=== PATIENT | female | born 1940 | race Caucasian/White ===

== ENCOUNTER 2017-08-16 08:21 | Inpatient (IN) | payer OTHER, MEDICARE ==
[~2017-08-16] VITALS: Ht 160 cm; Wt 52.6 kg
--- NOTE | ~2017-08-16 | EKG ---
[place] [address] [address] 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 : 1940 Requested By: Dary Valentin Order Number: [id number] MD: Douglas Mariscal Measurements Intervals Oracle Rate: 87 P: 58 KS: 145 QRS: 41 QRSD: 75 T: 53 QT: 378 QTc: 455 Interpretive Statements Sinus rhythm Nonspecific ST segment abnormality Baseline wander in lead(s) V1 Compared to ECG 08/18/2017 08:59:51 Atrial fibrillation no longer present Ventricular premature complex(es) no longer present Electronically Signed On 08-20-2017 8:29:12 CATTLE KNOCKER by Douglas Mariscal [email or web address] <ELECTRONICALLY SIGNED> By: Douglas Mariscal MD, [facility] 08/20/17 0829 1152 1152 Douglas Mariscal MD, [facility] /EPI
--- NOTE | ~2017-08-16 | S ---
[facility] [place] [place] [address] SURGICAL PATH RPT PROCEDURE Name: GIOVANNA OROURKE Room #: 357-P ADM IN M.R.#: [id number] Admission: 08/16/17 Date of : 38 Discharge: Report #: [id number] Path Case #: [id number] PATHOLOGY REPORT COLLECTION DATE: 08/16/2017 RECEIVED DATE: 08/16/2017 SUBMITTING PHYS: Dr. Jessika Solares OTHER PHYS: Dr. Kiko Ang SPECIMEN(S) RECEIVED: A.Portion of ileostomy B.Skin * * * * * * * * * * * * FINAL DIAGNOSIS: A. Segment of small intestine and skin "portion of ileostomy, segmental resection": - Recent mucosal hemorrhage with focal ulceration and granulation tissue and reactive changes. - There is no evidence of malignancy. B. "Skin", biopsy: - Seborrheic keratosis. - There is no evidence of atypia or malignancy. (SHA:mml; 08/20/2017) PATHOLOGIST: Hang Mercer M.D. REPORT ELECTRONICALLY SIGNED BY: Hang Mercer M.D. DATE/TIME: 08/20/2017 13:33 * * * * * * * * * * * * GROSS PATHOLOGY: A. Received in formalin labeled Giovanna Orourke, portion of ileostomy" and consists of a closed segment of small intestine measuring 4.8 cm in length by a 2.5 cm in diameter. One end is closed with garth. The opposite end shows a stoma measuring 1.4 cm in diameter. The mucosal aspect of some is granular and brown. There is a rim of skin surrounding the stoma that measures 0.3 cm in width. Sectioning reveals no mucosal lesions. [place] sections are submitted as A1. B. Received in formalin labeled "Giovanna Orourke, skin" and consists of 2 segments of gupta skin measuring 3.5 x 0.7 x 0.3 cm and 3.4 x 0.9 x 0.4 cm. No epidermal lesions are identified. [place] sections of each are submitted as E1. (TESS; 08/19/2017) [facility] [place] [address] SURGICAL PATH RPT PROCEDURE Name: GIOVANNA OROURKE Room #: 357-P ADM IN M.R.#: [id number] Admission: 08/16/17 Date of : 38 Discharge: Report #: [id number] Path Case #: [id number] CLINICAL HISTORY: Perforated small bowel INITIAL CPT CODE(S): A; 48430 B; 39753 Professional services performed by [facility] at [facility] [address] [place] [address] Technical services performed by [facility] at [address] [place] [address], [facility] [address] [address]. [facility] [address] [address] PHONE: [phone] DIRECTOR: Gregorio Sheldon M.D. * * * END OF REPORT * * *
--- NOTE | ~2017-08-16 | P ---
[facility] [place] [address] PROCEDURE REPORT Name: GIOVANNA SALES Room #: 357-P [facility] IN M.R.#: [id number] Admission: 08/16/17 Attend Phys: Kiko Swenson MD Discharge: Date of : 39 Report #: [id number] THIS REPORT FOR: //name// CC: Kiko Ang MD BRIEF HISTORY: The patient is a 76-year-old woman with Crohn's disease who has had lower abdominal pain. Recent evaluation with CT and labs was nondiagnostic. She presents today for diagnostic ileoscopy and outpatient ileoscopy and sigmoidoscopy. PREOPERATIVE DIAGNOSIS: Crohn's disease status post abdominal colectomy. POSTOPERATIVE DIAGNOSIS: History of Crohn's disease, possible perforation at the ileal stoma. MEDICATIONS: Deep sedation with propofol per anesthesia. SPECIMEN: None. ESTIMATED BLOOD LOSS: 3 mL. PROCEDURE: Ileoscopy. FINDINGS: Prior to propofol sedation, procedure of ileoscopy was discussed with the patient as well as potential risks, benefits, and complications. She indicates she understands and desires to proceed. With the patient in supine position, digital examination was completed of the ileal stoma and no abnormalities were noted. Subsequently, the KAICOREi video colonoscope was introduced without difficulty or resistance. Immediately upon introductions, red blood was seen. The scope was withdrawn back and there appeared to be disruption of the mucosa. I could see the lumen of the ileum and the scope did advance easily into that area. However, since the mucosa was disrupted. This may represent a mucosal tear or possibly a perforation at the ileal stoma site. Due to that concern, the scope was withdrawn and the procedure terminated. DISPOSITION: She has mucosal disruption and whether this represents a complete perforation is not entirely clear. We will not do flexible sigmoidoscopy at [facility] [address] [place] [address] PROCEDURE REPORT Name: GIOVANNA SALES Room #: 357-P [facility] IN .R.#: [id number] Admission: 08/16/17 Attend Phys: Kiko Swenson MD Discharge: Date of : 39 Report #: [id number] this time and have the patient go for a CT to evaluate for the possibility of a perforation. <ELECTRONICALLY SIGNED> By: Kiko Swenson MD 08/18/17 1339 1013 1521 Kiko Swenson MD /nt
--- NOTE | ~2017-08-16 | 2DMMODE ---
[facility] [address] [place] [address] 2 D/M-MODE ECHOCARDIOGRAM Name: GIOVANNA SALES Room #: 357-P ADM IN M.R.#: [id number] Admission: 08/16/17 Attend Phys: Megan Metzger Discharge: Date of : 38 Date of Service: 08/20/17 1311 Report #: [id number] THIS REPORT FOR: //name// APPROVED REPORT Study performed: 08/20/2017 11:17:40 EXAM: Comprehensive 2D, Doppler, and color-flow Echocardiogram Patient Location: Bedside Room #: 357 Status: routine BSA: 1.52 HR: 82 bpm BP: 114/39 mmHg Other Information Study Quality: Adequate Indications Pulmonary Hypertension Hypertension/HDD 2D Dimensions RVDd: 32.40 mm LVEF(%): 64.71 (>50%) IVSd: 7.74 (7-11mm) LVOT Diam: 18.68 (18-24mm) LVDd: 36.24 mm PWd: 7.38 (7-11mm) Ascending Ao: 28.64 (22-36mm) LVDs: 23.69 (25-40mm) Aortic Root: 27.15 mm IVC: 12.00 mm Mae's LVEF: 64.71 % Volumes Left Atrial Volume (Systole) Single Plane 4CH: 44.31 mL Single Plane 2CH: 42.70 mL LA ESV Index: 32.00 mL/m2 Aortic Valve AoV Peak Willard.: 1.26 m/s AO Peak Gr.: 6.31 mmHg LVOT Max P.64 mmHg LVOT Max V: 1.08 m/s NORMAN Vmax: 2.35 cm2 Mitral Valve E/A Ratio: 1.1 MV Decel. Time: 313.57 ms [facility] [place] [address] 2 D/M-MODE ECHOCARDIOGRAM Name: MÓNICAGIOVANNA VEENA Room #: 357-P ADM IN M.R.#: [id number] Admission: 08/16/17 Attend Phys: Megan Metzger Discharge: Date of : 38 Date of Service: 08/20/17 1311 Report #: [id number] MV E Max Willard.: 1.28 m/s MV A Willard.: 1.20 m/s MV PHT: 90.94 ms IVRT: 59.98 ms Pulmonary Valve PV Peak Willard.: 1.07 m/s PV Peak Gr.: 4.57 mmHg Pulmonary Vein P Vein S: 0.47 m/s P Vein A: 0.22 m/s P Vein D: 0.30 m/s P Vein A Dur.: 106.1 msec P Vein S/D Ratio: 1.57 Tricuspid Valve TR Peak Willard.: 2.89 m/s TR Peak Gr.: 33.33 mmHg PA Pressure: 38.00 mmHg Left Ventricle The left ventricle is normal size. There is normal left ventricular wall thickness. The left ventricular systolic function is normal. The left ventricular ejection fraction is within the normal range. LVEF is 60-65%. Grade II - pseudonormal filling dynamics. Right Ventricle The right ventricle is normal size. The right ventricular systolic function is normal. Atria The left atrium size is normal. The right atrium size is normal. Aortic Valve The aortic valve is normal in structure. No aortic regurgitation is present. There is no aortic valvular stenosis. Mitral Valve The mitral valve is normal in structure. There is no mitral valve regurgitation noted. No evidence of mitral valve stenosis. Tricuspid Valve The tricuspid valve is normal in structure. There is trace tricuspid regurgitation. Estimated PAP 38 mmHg. There is mild pulmonary hypertension. Pulmonic Valve [facility] [address] [place] [address] 2 D/M-MODE ECHOCARDIOGRAM Name: GIOVANNA SALES Room #: 357-P ADM IN M.R.#: [id number] Admission: 08/16/17 Attend Phys: Megan Metzger Discharge: Date of : 38 Date of Service: 08/20/17 1311 Report #: [id number] The pulmonary valve is normal in structure. Trace pulmonic regurgitation. Great Vessels The aortic root is normal in size. IVC is normal in size and collapses >50% with inspiration. Pericardium There is no pericardial effusion. <Conclusion> The left ventricle is normal size. The left ventricular systolic function is normal. Grade II - pseudonormal filling dynamics. The right ventricle is normal size. The left atrium size is normal. There is no aortic valvular stenosis. The mitral valve is normal in structure. There is no pericardial effusion. <ELECTRONICALLY SIGNED> By: Josse Tom MD 08/20/17 131 10 10 Josse Tom MD /INF
--- NOTE | ~2017-08-16 | HC ---
[facility] [place] [address] CONSULTATION Name: GIOVANNA SALES Room #: 357-P ADM IN M.R.#: [id number] Admission: 08/16/17 Attend Phys: Kiko Swenson MD Discharge: Date of : 39 Report #: [id number] THIS REPORT FOR: //name// CC: Kiya Ang DATE OF SERVICE: 08/21/2017 HISTORY OF PRESENT ILLNESS: The patient is a 76-year-old white female with history of Crohn's disease, past history of a colectomy and ileostomy, who was admitted with a perforated distal ileum with early abdominal sepsis. She underwent exploratory laparotomy with segmental bowel resection with ileostomy revision on 08/16/2017. Postoperatively, she has been treated for basilar infiltrates with healthcare-associated pneumonia, renal insufficiency, DVT of left lower extremity. She has a history of chronic kidney disease. She is noted to have acute on chronic renal insufficiency. She has medical complexity with debilitation. She is still on nasal prong O2, which is new for her with her pulmonary infiltrates. Pulmonary medicine is involved as well. We are seeing her now in rehabilitation medicine consultation. PAST MEDICAL HISTORY: Includes hypertension, Crohn's disease, hysterectomy, chronic kidney disease, superficial blood clots right leg, DVT left leg, started on Coumadin led to bleeding in the colon. IVC filter was placed. She had prior colon surgery with ileostomy placement in 2009. History of osteoporosis and B12 deficiency. HABITS: No history of tobacco or alcohol abuse. FAMILY HISTORY: Significant for vascular disease. Mother had a CVA. SOCIAL HISTORY: Lives in house with spouse, 2 steps in. Did not utilize gait aids. Not on O2. can assist. REVIEW OF SYSTEMS: Did not offer any current complaints of chest pain or abdominal discomfort. Notes shortness of breath with increased activity. No focal extremity pain complaints at this time. Notes that her mouth is dry and she is just starting to try to eat. PHYSICAL EXAMINATION: GENERAL: Pleasant 76-year-old white female in no obvious distress. Alert and pleasant. She is on 3 liters nasal cannula. VITAL SIGNS: Last recorded temperature is 100.2, pulse 87, respirations 18, blood pressure 104/56. HEENT: Appeared benign. EXTREMITIES: Functional range of motion of both upper extremities. Strength is [facility] [address] [id number] CONSULTATION Name: GIOVANNA SALES Room #: [address] [place] [address] IN M.R.#: [id number] Admission: 08/16/17 Attend Phys: Kiko Swenson MD Discharge: Date of : 39 Report #: [id number] grade 4-/5. DTRs are trace to 1. Lower extremities, no focal calf swelling. Trace distal lower extremity edema. Strength is grade 4-/5. DTRs are trace to 1. She is standby assistance with sit to stand. Gait was 14 feet min assist with a front-wheeled walker. ASSESSMENT: A 76-year-old white female with the following problem list: 1. Medical complexity with generalized debilitation. 2. Pulmonary rehabilitation. 3. Distal ileal perforation, now status post exploratory laparotomy with segmental bowel resection and ileostomy reversal on 08/16/2017. 4. History of Crohn's disease with past colectomy and ileostomy. 5. Acute renal insufficiency superimposed on chronic kidney disease. 6. Pulmonary infiltrates. 7. Hypertension. 8. Prior history of a deep venous thrombosis of left lower extremity. PLAN: I would anticipate that the patient should be a good acute in-hospital inpatient rehabilitation candidate as she further medically stabilizes. We will be glad to follow along with you regarding her rehab therapy needs. By: 1249 2200 Ty Cisneros MD /SAPNA
--- NOTE | ~2017-08-16 | HC ---
[facility] [place] [address] CONSULTATION Name: GIOVANNA SALES Room #: 357-P ADM IN M.R.#: [id number] Admission: 08/16/17 Attend Phys: Kiko Swenson MD Discharge: Date of : 39 Report #: [id number] THIS REPORT FOR: //name// CC: Kiko Ang DATE OF SERVICE: 08/16/2017 REASON FOR CONSULTATION: Elevated creatinine. HISTORY OF PRESENT ILLNESS: This is a 76-year-old female who has a long history of inflammatory bowel disease/Crohn's disease. This was originally present in 2003. She had a colectomy in 2009. She has an ileostomy in place and continues to function from that. She had a long course of Asacol and Remicade. She tends to have very high ostomy outputs and hence runs a creatinine level in the 1.6-1.8 range. I have seen her in the office for evaluation of that. She has no history of urinary tract infections, nephrolithiasis, hematuria, or proteinuria. She also was on some nonsteroidals in the form of ibuprofen. She had somewhat dense kidneys on ultrasound at that time. Kidneys on a CT scan yesterday showed a somewhat short of appearance. As an outpatient, it was my impression that she had a chronic tubular interstitial nephritis as the cause of her CKD. I last saw her in the office on 12/16/2016 and her creatinine level at that point was 1.66. She is on no renal active medications. I have recommended that she keep her fluid intake high chronically because of her high ostomy outputs. Yesterday, she came in for a scope. She suffered a perforation during that scope. She was taken to the operating room where she had a segmental small bowel resection and ileostomy revision as well as a washout of the abdomen. She did well with that. She has been placed on the surgical floor. At this point, she is already taking some liquids by mouth. She states she is thirsty. She has also been on some IV fluids. She has not been hypotensive. In fact, she has had fairly good blood pressures. Listed intake is 1.2 liters and output of 650 mL overnight. PAST MEDICAL HISTORY: Crohn's disease as noted above. She has had previous GI bleed and total colectomy with ileostomy in 2009. Her Crohn's has actually been fairly quiescent since her colectomy. She had a previous DVT, has IVC filter in place. She also has some hyperlipidemia. She has had a previous hysterectomy as well as a colectomy and a left leg venous procedure. MEDICATIONS: Prior to admission include lovastatin 40 mg daily, calcium with vitamin D, vitamin B12 shots twice monthly and Prolia 60 mg injection every [address] [address] CONSULTATION Name: GIOVANNA SALES Room #: 357-P [facility] IN M.R.#: [id number] Admission: 08/16/17 Attend Phys: Kiko Swenson MD Discharge: Date of : 39 Report #: [id number] FAMILY HISTORY: Father at 50 years old of head trauma. Mother at age 79 of CVA. She has a one sister alive with hypertension in her 70s. No known renal disease in the family. SOCIAL HISTORY: The patient is , lives in [place], [place]. 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 REVIEW OF SYSTEMS: She has tried to remain very active and in fact is very busy on a daily basis. She has been doing some water aerobics. She denies dyspnea, cough, chest pain or palpitations. She does have abdominal discomfort since surgery yesterday. She denies nausea, vomiting. She is trying to take in some liquids. No difficulty voiding urine, although she has had a urinary catheter placed. No peripheral edema. PHYSICAL EXAMINATION: GENERAL: A very pleasant 76-year-old female. VITAL SIGNS: Blood pressure 126/55, heart rate 103, temperature 98.1. HEENT: Shows somewhat dry oral mucosa, no lesions. Pupils are equal and reactive. Sclerae nonicteric. NECK: Veins are not distended. Neck is supple. CHEST: Clear bilaterally. HEART: Has a regular rate and rhythm. ABDOMEN: Actually has a few bowel sounds present. She is very tender postop. EXTREMITIES: Show no peripheral edema. LABORATORY DATA: From this morning, sodium 139, potassium 4.6, chloride 108, bicarbonate 21, BUN 27, creatinine 2.2, glucose 169, calcium 8.0, magnesium 1.5, AST 31, ALT 19, total protein 6.3, albumin 2.9. White count 8.5, hemoglobin 12.2, hematocrit 36.6, platelets 160,000. ASSESSMENT: 1. One day post procedure related perforation in the small intestine. She has had surgery to correct that and is now doing remarkably well. Blood pressure is holding well. Hemodynamics are okay. She has gotten IV fluids. Urine output is up. She is already taking fluids orally, so hopefully she will continue recovering. 2. Chronic kidney disease stage III with acute worsening. She has somewhat small kidneys at baseline. We have had her off of nonsteroidals. She has tried to keep fluid intake up. Her acute rise was with a creatinine up to 2.2. She is making good urine now and is on IV fluids. I expect this should correct fairly readily. 3. Crohn's disease. History as noted above. PLAN: 1. We will continue on her current IV fluids, normal saline. 2. Oral intake is able. [facility] [address] [place] [address] CONSULTATION Name: GIOVANNA SALES Room #: 357-P ADM IN M.R.#: [id number] Admission: 08/16/17 Attend Phys: Kiko Swenson MD Discharge: Date of : 38 Report #: [id number] 3. Monitor intake and output. 4. Repeat labs in the morning. 5. We will follow along the care of this pleasant patient, both here in the hospital and continued as an outpatient. <ELECTRONICALLY SIGNED> By: Augusto Agarwal MD 08/19/17 0805 1221 194 Augusto Agarwal MD /nt
--- NOTE | ~2017-08-16 | O ---
[facility] [place] [address] OPERATIVE REPORT Name: GIOVANNA SALES Room #: 357-P ADM IN M.R.#: [id number] Admission: 08/16/17 Attend Phys: Kiko Swenson MD Discharge: Date of : 39 Report #: [id number] THIS REPORT FOR: //name// CC: Kiko Ang DATE OF SERVICE: 08/16/2017 PREOPERATIVE DIAGNOSIS: Perforated distal ileum with early abdominal sepsis. POSTOPERATIVE DIAGNOSES: 1. Perforated distal ileum with early abdominal sepsis. 2. Dense and significant intra-abdominal adhesions. 3. Numerous incisional ventral hernias. PROCEDURES PERFORMED: 1. Exploratory laparotomy with washout. 2. Extensive lysis of adhesions. 3. Segmental small bowel resection. 4. Ileostomy revision. 5. Suture repair of numerous incisional ventral hernias. SURGEON: Jessika Solares MD TIMBER SPOTTER: JENNIFER Cisneros. ANESTHESIA: General endotracheal anesthesia. ESTIMATED BLOOD LOSS: Minimal (less than 10 mL). COMPLICATIONS: None appreciated. SPECIMENS: Segment of small bowel to pathology. INDICATIONS: The patient is a 76-year-old female with a history of Crohn's disease for which she underwent a subtotal colectomy with end ileostomy. The patient has been having chronic abdominal and pelvic pain and presented as an outpatient for GI evaluation in the form of an ileoscopy and flexible sigmoidoscopy. Unfortunately, the patient sustained perforation with free intra-abdominal air and fluid in the right lower quadrant and is mounting peritoneal findings and as such, indication was for exploration today with intraoperative findings of a small perforation right at the level of the abdominal wall, traversing into the intra-abdominal domain that required resection and ileostomy revision with washout. [facility] [address] [place] [address] OPERATIVE REPORT Name: GIOVANNA SALES Room #: 357-P [facility] IN M.R.#: [id number] Admission: 08/16/17 Attend Phys: Kiko Swenson MD Discharge: Date of : 39 Report #: [id number] DESCRIPTION OF PROCEDURE: After explaining the risks, benefits and alternatives of the procedure with the patient in detail in the preoperative holding area and obtaining written consent, the patient was brought to the operating room and placed supine on the operating room table. After conducting a thorough timeout procedure, verifying correct patient and procedure, the patient was given general endotracheal anesthesia. Once adequate anesthesia was obtained, her SCDs were hooked up to pneumatic compression device and she was given a preoperative dose of antibiotics in line with the SCIP protocol. The patient's abdomen was prepped and draped in the standard surgical sterile fashion. As this was going to necessitate ileostomy revision, I did suture close her ileostomy using 2-0 nylon in pursestring fashion prior to prepping and draping in standard fashion. Now, the abdomen was prepped and draped and after performing the timeout procedure, electrocautery was used to circumferentially excise the mucocutaneous junction of her indwelling ileostomy. This was carried down through skin and subcutaneous tissues to the level of fascia where the distal ileum was freed from its fascial attachments. Unfortunately, we were unable to pull any of this bowel through the abdominal wall, likely secondary to marked intra-abdominal adhesions and this necessitated exploratory laparotomy. A #15 bladed scalpel was then used to create a midline incision, following her prior incision site from just in the supraumbilical location to the suprapubic location. Electrocautery was used to carry this down through skin and subcutaneous tissues to ensure hemostasis. Once I arrived upon the level of the fascia, she had numerous incisional hernias identified. I was able to open the fascia down the midline through these hernia defects. Once I had opened the entirety of the abdominal domain at the level of the fascia, I used electrocautery to take down dense intraabdominal adhesions. This was performed for approximately 45 minutes until I had freed the entirety of them and was able to fully evaluate the small bowel. The small bowel itself had been twisted in a corkscrew-like fashion low in the pelvis and that could be the causative factor of her chronic abdominal and pelvic pain. Upon taking down all these adhesions, we were able to free the entirety of these to where the small bowel appeared completely normal. Now that I had taken down all these adhesions, I was able to pull the distal ileum through the ileostomy site for approximately 6 inches, where I could evaluate it and we found the evidence of the overt perforation. The KEATON-75 mm stapler was now used to transect the small bowel at a healthy location and the segment of small bowel with ileostomy was passed off of the field. The staple line was elevated between Allis clamps for future ileostomy creation and orientation was preserved to ensure no twisting. I then sucked out approximately 50 mL of succuss entericus found in the right lower quadrant that was loculated secondary to her adhesions from the perforation. I irrigated with 3 liters normal saline and the irrigant ran clear throughout and we saw no further evidence of intra-abdominal contamination, whatsoever. I now proceeded to close the midline abdominal wound using looped #1 PDS suture in standard running fashion, which effectively performed a primary suture repair of her incisional ventral hernias. The skin wound was copiously irrigated and closed with garth. The midline wound was then covered and the Allis clamps for the [facility] [address] [place] [address] OPERATIVE REPORT Name: GIOVANNA SALES Room #: 357-P ADM IN M.R.#: [id number] Admission: 08/16/17 Attend Phys: Kiko Swenson MD Discharge: Date of : 39 Report #: [id number] ileostomy were elevated and the staple line was removed with curved Pineda scissors. I now proceeded to mature the ileostomy in standard Lizet fashion using 3-0 Vicryl at the 12, 3, 6, and 9 o'clock positions to gently imbricate the ileostomy. I then closed the mucocutaneous junction in the remaining 4 quadrants using short runs of 3-0 Vicryl in standard running fashion. Digital finger intubation of the ileostomy showed it patent to a subfascial level. I then placed a Prevena topical wound VAC device overlying the midline abdominal wound and placed a standard ileostomy appliance. At the end of the procedure, all instrument, needle and sponge counts were correct. The patient tolerated the procedure without incident, was awakened in the operating room and transitioned to the recovery room in stable condition with no apparent complications. <ELECTRONICALLY SIGNED> By: Jessika Solares MD, FACS 08/19/17 0755 [id number] Jessika Solares MD, FACS /nt
--- NOTE | ~2017-08-16 | EKG ---
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: [id number] : 1940 Requested By: Kiya Askew Order Number: [id number] MD: Jose Luis Walter Measurements Intervals [place] Rate: 150 P: NM: QRS: 9 QRSD: 73 T: 38 QT: 302 QTc: 478 Interpretive Statements Atrial fibrillation with rapid V-rate Multiple ventricular premature complexes Aberrant complex Low voltage, extremity leads Baseline wander in lead(s) V2 No previous ECG available for comparison Electronically Signed On 08-18-2017 23:38:29 DIALYSIS SOCIAL WORKER by Jose Luis Walter [email or web address] <ELECTRONICALLY SIGNED> By: Jose Luis Walter MD 08/18/17 [phone] [id number] Jose Luis Walter MD /EPI
--- NOTE | ~2017-08-16 | HC ---
[facility] [place] [address] CONSULTATION Name: GIOVANNA SALES Room #: 357-P ADM IN M.R.#: [id number] Admission: 08/16/17 Attend Phys: Kiko Swenson MD Discharge: Date of : 39 Report #: [id number] THIS REPORT FOR: //name// CC: Kiko Fosterreys DATE OF SERVICE: 08/16/2017 REFERRING PROVIDER: Kiko Swenson MD. REASON FOR CONSULT: Right lower quadrant abdominal pain and free air in the abdomen after ileoscopy. HISTORY OF PRESENT ILLNESS: The patient is a 76-year-old female with a longstanding history of Crohn's disease for which she underwent an open subtotal colectomy with ileostomy placement. The patient has been complaining of chronic lower abdominal and pelvic pain and as such presented as an outpatient for ileoscopy and flexible sigmoidoscopy upper rectal stump. At the time of attempted ileoscopy, Dr. Swenson performed digital finger intubation of her ileostomy as followed by attempted ileoscopy with some difficulty and saw a large amount of red blood. The patient began complaining of right lower quadrant abdominal pain shortly thereafter and as such, he presented to obtain a CT scan of the abdomen and pelvis. The patient's CT scan unfortunately showed large amount of free intra-abdominal air, which upon my review also showed some fluid and as the patient is having markedly increasing peritoneal findings around the right lower quadrant, I have been asked to emergently evaluate and intervene. PAST MEDICAL HISTORY: Crohn's disease, hypertension, prior hysterectomy, CKD stage 3. She has had a prior DVT in the right lower extremity and has an IVC filter in place. ALLERGIES: DARVOCET, WHICH CAUSED NAUSEA. SOCIAL HISTORY: The patient does not utilize tobacco or illicit drugs. She drinks alcohol sparingly and only in very special situations. FAMILY HISTORY: Reviewed and noncontributory. REVIEW OF SYSTEMS: GENERAL: The patient denies nocturnal fevers or chills. HEENT: No change in vision, change in hearing. NECK: No swelling or difficulty swallowing. HEART: No chest pain or palpitations. LUNGS: Recent shortness of breath for which she has undergone cardiopulmonary [facility] [address] [place] [address] CONSULTATION Name: GIOVANNA SALES Room #: 357-[facility] IN ..#: [id number] Admission: 08/16/17 Attend Phys: Kiko Swenson MD Discharge: Date of : 39 Report #: [id number] evaluation. ABDOMEN: Chronic abdominal and pelvic pain, but no nausea or vomiting. GENITOURINARY: No dysuria or hematuria. ENDOCRINE: No polyuria or polydipsia. HEMATOLOGIC: No history of bleeding or easy bruising. EXTREMITIES: No history of weakness or limited range of motion. NEUROLOGIC: No history of syncope or near syncopal episodes. SKIN AND INTEGUMENT: No history of abnormal lesions or moles. PSYCHIATRIC: No history of anxiety or depression. PHYSICAL EXAMINATION: VITAL SIGNS: Temperature was 101.3 in the GI lab waiting area, pulse 114, respirations 18, blood pressure 103/72. GENERAL: She is alert and oriented, in minimal distress. HEENT: Normocephalic, atraumatic. Pupils equal, round, reactive to light. NECK: Supple, without lymphadenopathy. Trachea midline. HEART: Regular rate and rhythm. LUNGS: Clear to auscultation bilaterally. GASTROINTESTINAL: Abdomen is soft, no real overt distention. She is exquisitely tender to palpation in the right lower quadrant with positive guarding and minimal rebound. GENITOURINARY: Normal external female genitalia. EXTREMITIES: No clubbing, cyanosis or edema. NEUROLOGIC: Cranial nerves 2-12 are grossly intact. PSYCHIATRIC: Normal mood and affect. SKIN AND INTEGUMENT: No abnormal lesions or moles. LABORATORY AND X-RAY DATA: CT scan was reviewed showing the above findings as per HPI with free intra-abdominal air and fluid from suspected perforated distal ileum at the time of ileoscopy. No other labs are available at this time. ASSESSMENT AND PLAN: A 76-year-old female who has unfortunately sustained perforation of her distal ileum at the time of an attempted ileoscopy with a past history of Crohn's disease for which she has been on numerous immunosuppressive agents in the past. She is not currently on anything at this time, however. She recently had shortness of breath and was found to be in atrial flutter and has undergone a thorough cardiopulmonary workup with outpatient echocardiogram and stress testing, which were negative. She has now converted back in a normal sinus rhythm and had no further episodes and was taken off Eliquis in the past. After thorough discussion with the patient in reviewing her CT scan and her clinical exam, there is a high degree of concern for intra-abdominal perforation from her attempted ileoscopy and we will proceed emergently to the operating room for surgical correction of this issue. This may necessitate a midline abdominal incision, but I will start off hopefully being able to simply evaluate this through her right lower quadrant ileostomy site. Risks, benefits and alternatives of that have been discussed with the [facility] [address] [place] [address] CONSULTATION Name: GIOVANNA SALES Room #: 357-P ADM IN M.R.#: [id number] Admission: 08/16/17 Attend Phys: Kiko Swenson MD Discharge: Date of : 39 Report #: [id number] patient in detail and she agrees to proceed as outlined. I sincerely appreciate this consult. I will follow closely postoperatively and leave any further recommendations in the patient's chart as appropriate. <ELECTRONICALLY SIGNED> By: Jessika Solares MD, FACS 08/19/17 [id number] Jessika Solares MD, FACS /nt
[~2017-08-16 08:21] MED LIST: ASPIR 8181 MG PO; B12INJ IM; BIOTIN5 MG PO; CALCIUM 500 +1 EAC5 PO; LOVASTAT40 PO; PROLIA60 MG/1 ML SUBQ
[2017-08-16 17:36] VITALS: BP 125/56
[2017-08-16 19:23] VITALS: BP 140/59
[2017-08-16 23:34] VITALS: BP 113/56
[2017-08-17 04:45] VITALS: BP 114/57
[2017-08-17 05:11] LABS: HEMATOCRIT 36.6 % (37.0-47.0); HEMOGLOBIN 12.2 gm/dL (12.0-15.0); MCHC 33.3 g/dL (28.0-37.0); MCV 96.2 fL (80.0-100.0); PLATELET COUNT 167 thou/uL (150-400); RBC 3.81 mil/uL (4.20-5.00); RDW 12.8 % (10.5-14.5); WBC 8.5 thou/uL (4.0-11.0)
[2017-08-17 05:19] LABS: MANUAL DIFF YES
[2017-08-17 05:29] LABS: ALBUMIN 2.9 g/dL (3.4-5.0); CREATININE 2.2 mg/dL (0.6-1.0); MAGNESIUM 1.5 mg/dL (1.8-2.4); POTASSIUM 4.6 mmol/L (3.5-5.1); TOTAL BILIRUBIN 0.5 mg/dL (<0.1-1.0); TOTAL PROTEIN 6.3 g/dL (6.4-8.2)
[2017-08-17 06:46] LABS: ABSOLUTE NEUTROPHILS 7.6 thou/uL (1.4-8.2); TOTAL CELL COUNT 100
[2017-08-17 06:47] LABS: PLATELET ESTIMATE NORMAL
[2017-08-17 08:00] VITALS: BP 126/55
[2017-08-17 15:20] LABS: URINE BILIRUBIN NEGATIVE (Negative); URINE BLOOD 2+ (Negative); URINE COLOR YELLOW; URINE GLUCOSE-RANDOM* NEGATIVE (Negative); URINE KETONES NEGATIVE (Negative); URINE NITRITE NEGATIVE (Negative); URINE PROTEIN (DIPSTICK) NEGATIVE (Negative); URINE SPECIFIC GRAVITY 1.025 (1.005-1.035); URINE UROBILINOGEN 0.2 E.U./dl (0.2-1.0)
[2017-08-17 15:33] LABS: SQUAMOUS 0-3 Few /LPF (0-3)
[2017-08-17 15:34] LABS: AMORPHOUS URATES Few /LPF (None Seen); BACTERIA 1-9 Few /HPF (None Seen); COARSE GRANULAR CASTS 0-3 Few /LPF (None Seen); HYALINE CASTS 0-3 Few /LPF (None Seen); URINE RBC 3-10 Few /HPF (0-2)
[2017-08-17 16:00] VITALS: BP 127/61
[2017-08-17 19:25] VITALS: BP 122/55
[2017-08-18 04:15] VITALS: BP 134/49
[2017-08-18 04:25] LABS: HEMATOCRIT 34.1 % (37.0-47.0); HEMOGLOBIN 11.5 gm/dL (12.0-15.0); MCH 32.4 pg (26.0-34.0); MCHC 33.7 g/dL (28.0-37.0); MCV 95.9 fL (80.0-100.0); PLATELET COUNT 138 thou/uL (150-400); RBC 3.55 mil/uL (4.20-5.00); RDW 13.3 % (10.5-14.5); WBC 10.1 thou/uL (4.0-11.0)
[2017-08-18 04:27] LABS: MANUAL DIFF YES
[2017-08-18 04:48] LABS: ALBUMIN 2.4 g/dL (3.4-5.0); CALCIUM 7.4 mg/dL (8.5-10.1); CREATININE 1.8 mg/dL (0.6-1.0); PHOSPHORUS 2.5 mg/dL (2.5-4.9); POTASSIUM 4.4 mmol/L (3.5-5.1)
[2017-08-18 05:40] LABS: ABSOLUTE NEUTROPHILS 8.8 thou/uL (1.4-8.2); TOTAL CELL COUNT 100
[2017-08-18 08:25] VITALS: BP 123/44
[2017-08-18 13:05] VITALS: BP 117/54
[2017-08-18 16:45] VITALS: BP 112/43
[2017-08-18 20:00] VITALS: BP 118/86
[2017-08-18 21:42] LABS: ABG SAMPLE TYPE ARTERIAL; HCO3 14.7 mmol/L (22.0-26.0); LACTATE 1.97 mmol/L (0.5-2.0); O2(CT) 13.6 mL/dL (15.0-23.0); O2Hb 86.8 % (92.0-98.0); PCO2 25.6 mmHg (35.0-45.0); pH 7.376 (7.360-7.450); sO2 87.2 % (92.0-98.0); tCO2 15.5 mmol/L (24.0-30.0)
[2017-08-18 21:43] LABS: PO2 52.5 mmHg (80.0-100.0); STICK SITE R.RADIAL
[2017-08-19 00:20] VITALS: BP 115/47
[2017-08-19 04:00] VITALS: BP 120/46
[2017-08-19 05:51] LABS: HEMATOCRIT 31.2 % (37.0-47.0); HEMOGLOBIN 10.5 gm/dL (12.0-15.0); MCH 32.2 pg (26.0-34.0); MCHC 33.7 g/dL (28.0-37.0); MCV 95.5 fL (80.0-100.0); PLATELET COUNT 129 thou/uL (150-400); RBC 3.27 mil/uL (4.20-5.00); RDW 13.1 % (10.5-14.5); WBC 9.1 thou/uL (4.0-11.0)
[2017-08-19 06:02] LABS: MANUAL DIFF YES
[2017-08-19 06:12] LABS: CALCIUM 6.4 mg/dL (8.5-10.1); CREATININE 1.5 mg/dL (0.6-1.0); POTASSIUM 3.5 mmol/L (3.5-5.1)
[2017-08-19 08:00] VITALS: BP 121/49
[2017-08-19 08:34] LABS: ABSOLUTE NEUTROPHILS 7.9 thou/uL (1.4-8.2); PLATELET ESTIMATE NORMAL; TOTAL CELL COUNT 100
[2017-08-19 11:09] LABS: ABG SAMPLE TYPE ARTERIAL; BE(vivo) -7.5 mmol/L (-2 to +3); HCO3 15.2 mmol/L (22.0-26.0); LACTATE 2.63 mmol/L (0.5-2.0); O2(CT) 15.8 mL/dL (15.0-23.0); O2Hb 92.8 % (92.0-98.0); PCO2 23.9 mmHg (35.0-45.0); PO2 63.9 mmHg (80.0-100.0); STICK SITE L.RADIAL; pH 7.422 (7.360-7.450); sO2 93.3 % (92.0-98.0)
[2017-08-19 11:45] LABS: PROTIME 10.6 Seconds (9.3-11.4)
[2017-08-19 12:22] VITALS: BP 137/95
[2017-08-19 12:42] LABS: URINE BILIRUBIN NEGATIVE (Negative); URINE BLOOD 2+ (Negative); URINE COLOR YELLOW; URINE GLUCOSE-RANDOM* 1+ (Negative); URINE KETONES NEGATIVE (Negative); URINE LEUKOCYTES-REFLEX NEGATIVE (Negative); URINE PROTEIN (DIPSTICK) NEGATIVE (Negative); URINE UROBILINOGEN 0.2 E.U./dl (0.2-1.0)
[2017-08-19 12:56] LABS: COARSE GRANULAR CASTS 0-3 Few /LPF (None Seen); CRYSTALS None Seen /LPF (None Seen); SQUAMOUS None Seen /LPF (0-3); URINE RBC None Seen /HPF (0-2); URINE WBC-REFLEX 0-5 Rare /HPF (0-5)
[2017-08-19 13:11] LABS: HEMATOCRIT 33.8 % (37.0-47.0); HEMOGLOBIN 11.4 gm/dL (12.0-15.0); MCH 32.5 pg (26.0-34.0); MCHC 33.8 g/dL (28.0-37.0); MCV 95.9 fL (80.0-100.0); PLATELET COUNT 128 thou/uL (150-400); RBC 3.52 mil/uL (4.20-5.00); RDW 12.9 % (10.5-14.5); WBC 9.5 thou/uL (4.0-11.0)
[2017-08-19 13:12] LABS: MANUAL DIFF YES
[2017-08-19 13:32] LABS: TOTAL CELL COUNT 100
[2017-08-19 13:33] LABS: ANISOCYTOSIS SLIGHT
[2017-08-19 16:13] VITALS: BP 113/51
[2017-08-19 17:32] LABS: HEMATOCRIT 32.2 % (37.0-47.0); MCH 32.1 pg (26.0-34.0); MCHC 34.2 g/dL (28.0-37.0); MCV 93.8 fL (80.0-100.0); RBC 3.43 mil/uL (4.20-5.00); WBC 8.8 thou/uL (4.0-11.0)
[2017-08-19 19:25] VITALS: BP 128/46
[2017-08-20 00:41] LABS: HEMOGLOBIN 10.3 gm/dL (12.0-15.0); MCH 31.9 pg (26.0-34.0); MCHC 34.3 g/dL (28.0-37.0); MCV 92.9 fL (80.0-100.0); RBC 3.23 mil/uL (4.20-5.00); RDW 12.7 % (10.5-14.5); WBC 8.4 thou/uL (4.0-11.0)
[2017-08-20 01:15] LABS: CALCIUM 6.2 mg/dL (8.5-10.1); PHOSPHORUS 1.8 mg/dL (2.5-4.9)
[2017-08-20 01:27] LABS: POTASSIUM 2.8 mmol/L (3.5-5.1)
[2017-08-20 03:59] VITALS: BP 105/55
[2017-08-20 09:00] VITALS: BP 114/39
[2017-08-20 13:15] VITALS: BP 121/46
[2017-08-20 17:00] VITALS: BP 94/37
[2017-08-20 19:25] VITALS: BP 105/43
[2017-08-21 03:30] VITALS: BP 94/48
[2017-08-21 06:52] LABS: ALBUMIN 1.8 g/dL (3.4-5.0); CALCIUM 6.9 mg/dL (8.5-10.1); CREATININE 2.4 mg/dL (0.6-1.0); MAGNESIUM 1.2 mg/dL (1.8-2.4); PHOSPHORUS 3.5 mg/dL (2.5-4.9); POTASSIUM 3.3 mmol/L (3.5-5.1)
[2017-08-21 07:15] VITALS: BP 104/56
[2017-08-21 13:47] VITALS: BP 110/62
[2017-08-21 19:14] VITALS: BP 81/46
[2017-08-21 20:22] VITALS: BP 94/53
[2017-08-22 00:47] VITALS: BP 100/89
[2017-08-22 04:15] VITALS: BP 94/44
[2017-08-22 05:30] LABS: HEMATOCRIT 30.1 % (37.0-47.0); HEMOGLOBIN 10.2 gm/dL (12.0-15.0); MCH 31.4 pg (26.0-34.0); MCHC 33.9 g/dL (28.0-37.0); MCV 92.7 fL (80.0-100.0); RBC 3.25 mil/uL (4.20-5.00); RDW 12.8 % (10.5-14.5); WBC 11.2 thou/uL (4.0-11.0)
[2017-08-22 05:52] LABS: ALBUMIN 1.5 g/dL (3.4-5.0); CALCIUM 6.3 mg/dL (8.5-10.1); CREATININE 2.6 mg/dL (0.6-1.0); MAGNESIUM 2.1 mg/dL (1.8-2.4); PHOSPHORUS 1.8 mg/dL (2.5-4.9)
[2017-08-22 05:56] LABS: POTASSIUM 2.5 mmol/L (3.5-5.1)
[2017-08-22 13:57] VITALS: BP 94/73
[2017-08-22 13:59] VITALS: BP 102/74
[2017-08-22 16:37] VITALS: BP 123/47
[2017-08-22 20:00] VITALS: BP 113/43
[2017-08-23 05:10] VITALS: BP 103/53
[2017-08-23 05:39] LABS: HEMATOCRIT 29.2 % (37.0-47.0); HEMOGLOBIN 9.8 gm/dL (12.0-15.0); MCH 31.7 pg (26.0-34.0); MCHC 33.7 g/dL (28.0-37.0); MCV 94.1 fL (80.0-100.0); RBC 3.11 mil/uL (4.20-5.00); RDW 13.3 % (10.5-14.5); WBC 12.7 thou/uL (4.0-11.0)
[2017-08-23 05:54] LABS: ALBUMIN 1.5 g/dL (3.4-5.0); CALCIUM 6.1 mg/dL (8.5-10.1); CREATININE 2.6 mg/dL (0.6-1.0); MAGNESIUM 1.7 mg/dL (1.8-2.4); PHOSPHORUS 2.4 mg/dL (2.5-4.9); POTASSIUM 3.5 mmol/L (3.5-5.1)
[2017-08-23 07:25] VITALS: BP 104/48
[2017-08-23 13:20] VITALS: BP 100/49
[2017-08-23 15:25] VITALS: BP 91/57
[2017-08-23 20:13] VITALS: BP 105/39
[2017-08-24 03:55] VITALS: BP 92/43
[2017-08-24 04:37] LABS: ALBUMIN 1.4 g/dL (3.4-5.0); CREATININE 2.3 mg/dL (0.6-1.0); POTASSIUM 3.2 mmol/L (3.5-5.1)
[2017-08-24 07:21] VITALS: BP 107/56
[2017-08-24] MEDS ORDERED: LEVALBUTER0.63 MG/3 INH (09:54)
[2017-08-24] MEDS ORDERED: XARELTO15 MG PO (09:54)
[2017-08-24] MEDS ORDERED: LOPRESSOR50 PO (09:54)
[2017-08-24] MEDS ORDERED: METOCLOPRAM5 MG/1 ML IV (09:55)
[2017-08-24] MEDS ORDERED: INFANTS' G40 MG/0.6 PO (09:55)
[2017-08-24] MEDS ORDERED: PEPCID20 MG PO (09:55)
[2017-08-24] MEDS ORDERED: ONDANSETRON HCL4 M1 IV (09:55)
[2017-08-24] MEDS ORDERED: HYDROCODON-ACE1 EAC7 PO (09:55)
[2017-08-24] MEDS ORDERED: AUGMENTIN 875-1 EACH PO (09:56)
== END 2017-08-24 11:51 | DRG 853 ==
LOC: GI 08:21 → 3W 13:33 → TBA 13:33 → GI 14:50 → 3W 17:33 → ENTRNSPT 08-21 11:26 → EDTRNSPTSTS 08-21 11:32 → DELTRNSPT 08-21 11:45 → 4E 08-24 06:04
PROVIDERS: Hospitalist; Internal Medicine Nephrology; Internal Medicine Pulmonary Disease; Nurse Practitioner Acute Care; Surgery
DX: A41.9 Sepsis, unspecified organism (principal); K65.9 Peritonitis, unspecified; K63.1 Perforation of intestine (nontraumatic); J18.9 Pneumonia, unspecified organism; J96.90 Respiratory failure, unspecified, unspecified whether with hypoxia or hypercapnia; K91.71 Accidental puncture and laceration of a digestive system organ or structure during a digestive system procedure; N17.9 Acute kidney failure, unspecified; K56.7 Ileus, unspecified; N18.4 Chronic kidney disease, stage 4 (severe); J90 Pleural effusion, not elsewhere classified; K50.90 Crohn's disease, unspecified, without complications; E87.2 Acidosis; I82.401 Acute embolism and thrombosis of unspecified deep veins of right lower extremity; E87.6 Hypokalemia; I48.0 Paroxysmal atrial fibrillation; Z79.01 Long term (current) use of anticoagulants; I48.2 Chronic atrial fibrillation; Y95 Nosocomial condition; Z88.8 Allergy status to other drugs, medicaments and biological substances; D64.9 Anemia, unspecified; K80.20 Calculus of gallbladder without cholecystitis without obstruction; E83.51 Hypocalcemia; E83.39 Other disorders of phosphorus metabolism; E83.42 Hypomagnesemia; I12.9 Hypertensive chronic kidney disease with stage 1 through stage 4 chronic kidney disease, or unspecified chronic kidney disease; Z90.710 Acquired absence of both cervix and uterus; Z53.29 Procedure and treatment not carried out because of patient's decision for other reasons; M81.0 Age-related osteoporosis without current pathological fracture; Z72.89 Other problems related to lifestyle
CPT/HCPCS: 10779; 50010; 50101; 50386; 50455; 50953; 51412; 51712; 55075; 56524; 56525; 56527; 56530; 56771; 57092; 62110; 62900; 70005

== ENCOUNTER 2017-08-23 18:04 | Inpatient (IN) | payer OTHER, MEDICARE ==
[~2017-08-23] VITALS: Ht 160 cm; Wt 57.6 kg
--- NOTE | ~2017-08-23 | H ---
[facility] [place] [address] HISTORY AND PHYSICAL Name: GIOVANNA SALES Room #: 515-P ADM IN M.R.#: [id number] Admission: 08/24/17 Attend Phys: Ty Cisneros MD Discharge: Date of : 39 Report #: [id number] THIS REPORT FOR: //name// CC: Ty Ang DATE OF SERVICE: 08/24/2017 HISTORY AND PHYSICAL/POST ADMISSION PHYSICIAN EVALUATION HISTORY OF PRESENT ILLNESS: The patient is a 76-year-old white female with a history of Crohn's disease, past history of colectomy and ileostomy, who was admitted with a perforated distal ileum with early abdominal sepsis. She underwent exploratory laparotomy with segmental bowel resection with ileostomy revision on 08/16/2017. Postoperatively, she was treated for basilar infiltrate and was noted to have a healthcare-associated pneumonia. She was noted to have renal insufficiency and had a DVT of the left lower extremity. She has a history of chronic kidney disease. She is noted to have acute on chronic renal insufficiency. She has medical complexity with generalized debilitation. She has been on nasal prong O2 with pulmonary infiltrates, which are new for her. She was admitted with the above noted medical comorbidities for acute in-hospital inpatient rehabilitation. PAST MEDICAL HISTORY: Includes hypertension, Crohn's disease, hysterectomy, chronic kidney disease, superficial blood clots right leg, DVT in left leg and was started on Coumadin and had some bleeding in the colon. IVC filter was placed. She had prior colon surgery with ileostomy placement in 2009, history of osteoporosis and B12 deficiency. HABITS: No history of tobacco or alcohol abuse. FAMILY HISTORY: Mother had a CVA. FAMILY HISTORY: Significant for vascular disease. SOCIAL HISTORY: Lives in a house with spouse, 2 steps in. Did not utilize gait aids. Was not on O2. could assist. REVIEW OF SYSTEMS: No complaints of chest pain, shortness of breath is noted with increased activity. No focal extremity pain complaints. PHYSICAL EXAMINATION: GENERAL: The patient was seen yesterday. VITAL SIGNS: Last noted temperature 98, pulse 77, respirations 18, blood pressure 108/56. The patient is on nasal prong O2. CHEST: Some decreased breath sounds throughout. [facility] [address] [place] [address] HISTORY AND PHYSICAL Name: GIOVANNA SALES Room #: 515-P [facility] IN .R.#: [id number] Admission: 08/24/17 Attend Phys: Ty Cisneros MD Discharge: Date of : 39 Report #: [id number] CARDIOVASCULAR: Sounded regular rate and rhythm. ABDOMEN: She has the ileostomy. Abdominal dressing was in place. Bowel sounds appeared positive. GENITOURINARY AND RECTAL: Deferred. EXTREMITIES: Functional range of motion of bilateral upper extremities. Strength is grade 4-/5. DTRs are trace to 1. Lower extremities, no focal calf swelling, trace distal lower extremity strength is grade 4-/5. DTRs are trace to 1. She was needing standby assistance with sit to stand and has been ambulating a short distance with a walker with assistance. ASSESSMENT: A 76-year-old white female with the following problem list: 1. Medical complexity with generalized debilitation. 2. Pulmonary rehabilitation. 3. Distal ileal perforation, status post exploratory laparotomy with segmental bowel resection and ileostomy reversal on 08/16/2017. 4. History of Crohn's disease with past colectomy and ileostomy. 5. Acute renal insufficiency superimposed on chronic kidney disease. 6. Pulmonary infiltrates. 7. Hypertension. 8. Prior history of a DVT left lower extremity. PLAN: The patient is admitted for acute in-hospital inpatient rehabilitation. From a post-admission physician evaluation perspective, there are no relevant changes since the preadmission screening. Please see the above review of prior and current medical and functional conditions and comorbidities. Please see the patient's previous and current functional status. As far as risk of complications, the patient has multiple medical comorbidities as noted above. Initial plan of care involves the interdisciplinary acute inpatient rehabilitation program with the goal of maximizing the patient's functional independence, so that she cannot return back to her prior living situation. Measurable functional goals would be for the patient to become modified independent with transfers, mobility and ADLs, so that she can hopefully return back to her prior living situation. Prognosis is reasonably good with estimated length of stay probably at least 10 days to 2 weeks and potentially longer if needed. The patient meets diagnostic criteria for an acute in-hospital inpatient rehabilitation stay. She meets medical necessity criteria and we will have the multiple healthcare network pricing consultant physicians, continue to follow along while she is on the rehab bacon. She does have the tolerance for an acute in-hospital inpatient rehabilitation stay and has appropriate discharge goals back to the home setting. <ELECTRONICALLY SIGNED> By: Ty Cisneros MD 08/29/17 1647 [id number] Ty Cisneros MD /[facility]
--- NOTE | ~2017-08-23 | HC ---
[facility] [place] [address] CONSULTATION Name: GIOVANNA SALES Room #: 515-P [facility] IN M.R.#: [id number] Admission: 08/24/17 Attend Phys: yT Cisneros MD Discharge: 08/30/17 Date of : 39 Report #: [id number] THIS REPORT FOR: //name// CC: Ty Cisneros Felicitas Ang DATE OF SERVICE: 08/28/2017 Neurobehavioral Status Exam: ATTENDING PHYSICIAN: Ty Cisneros MD. OBIEE REPORT DEVELOPER: Ranjit Mays, PhD. CLINICAL PRESENTATION: The patient is a 76-year-old female admitted to [facility] rehabilitation unit for comprehensive inpatient rehabilitation program to improve functional mobility, activities of daily living and self-care and mental status secondary to deficits from medical complexity and general debility. The patient experienced a distal ileal perforation and is status post exploratory laparotomy with segmental bowel resection and ileostomy reversal on 08/16/2017. She has a history of Crohn's disease with past colectomy and ileostomy, acute renal insufficiency superimposed on chronic kidney disease, pulmonary infiltrates, hypertension and a prior history of DVT in the left lower extremity. She reports undergoing an exploratory laparotomy when she experienced a perforated ileum and early abdominal sepsis. A complete description of her medical condition and history can be found in her medical records. Neuropsychological consultation was requested to provide assistance in the assessment of cognitive and emotional status and to provide recommendations and services. Prior to this most recent admission, she was living independently with her in their home. The patient has 2 children. 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 She has a master's degree in education. TECHNIQUES UTILIZED: Clinical interview, review of medical records, staff consultation and behavioral observation, mini mental status exam 2 standard version. EXAMINATION FINDINGS: The patient was alert and cooperative with the assessment. She accurately described events surrounding her admission. There is no evidence of aphasia. Her thoughts are logical and goal oriented. There is no evidence of thought disorder. She does not report visual or auditory hallucinations. Her mood appears somewhat anxious and irritable. She indicates frustration with her continued hospitalization and a desire to return home as soon as possible. [facility] [address] [place] [address] CONSULTATION Name: GIOVANNA SALES Room #: 515-P [facility] IN .R.#: [id number] Admission: 08/24/17 Attend Phys: Ty Cisneros MD Discharge: 08/30/17 Date of : 39 Report #: [id number] Symptoms reported include decreased appetite and tiredness and fatigue during the day. Subjective depression with irritability is also noted. Her performance on the MMSE 2 brief version is within normal limits with a raw score of 15/16. Performance on the MMSE 2 standard version is within normal limits with a raw score 27/30. The patient was well oriented and 2/3 correct for immediate recall of 3 items after a brief time delay and distraction. Her performance on serial sevens was 3/5 correct. Suggested it is difficulty with attention and concentration. Her ability to draw visual or copying task was excellent and within normal limits. Performance overall is within normal limits on the mini mental status exam. DIAGNOSTIC IMPRESSION: Adjustment disorder with anxious mood. RECOMMENDATIONS: The patient is experiencing some intermittent irritability in regard to her prolonged hospitalization. The use of relaxation techniques and reassurance will be of benefit in her overall adjustment. Emphasizing her strengths and recoveRY in levels of independent activity will also increase her confidence in ability to maintain independence. Thank you very much for allowing me to provide the consultation on this patient. <ELECTRONICALLY SIGNED> By: Ranjit Mays, PhD 09/06/17 1838 [id number] Ranjit Mays, PhD /nt
--- NOTE | ~2017-08-23 | PLAN ---
[facility] [place] [address] REHAB UNIT PLAN OF CARE Name: GIOVANNA SALES Room #: 515-P [facility] M.R.#: [id number] Admission: 08/24/17 Attend Phys: Ty Cisneros MD Discharge: 08/30/17 Date of : 38 Report #: [id number] THIS REPORT FOR: //name// CC: Ty Ang DATE OF SERVICE: 08/27/2017 PROGRESS NOTE/OVERALL PLAN OF CARE The patient is seen back today in followup. She is in no distress. Temperature 97.7, pulse 72, respirations 20, blood pressure 141/56. She is alert. Abdomen midline incision appears to be intact. She has the ostomy which she notes is different from her prior. The ostomy nurse has been involved. The patient is requesting to see her again. Functionally, she has been transferring with standby assistance with gait min assist 100 feet without a device. In occupational therapy, lower body dressing with supervision. ASSESSMENT: 1. Medical complexity with generalized debilitation. 2. Pulmonary rehabilitation. 3. Distal ileal perforation, status post exploratory laparotomy with segmental bowel resection and ileostomy reversal 08/16/2017. 4. History of Crohn's disease with past colectomy and ileostomy. 5. Acute renal insufficiency superimposed on chronic kidney disease. 6. Pulmonary infiltrates. 7. Hypertension. 8. Prior history of deep venous thrombosis, left lower extremity. PLAN: The overall plan of care is based on the preadmission screen, post-admission physician evaluation and information garnered from therapy assessments. 1. Estimated length of stay is at least 10 days to 2 weeks. 2. Medical prognosis is reasonably good. 3. Anticipated interventions include the interdisciplinary acute inpatient rehabilitation program with the goal of maximizing her functional independence, so she can hopefully return back to her prior living situation. We will have PT, OT, rehab nursing assisting regarding medication management, skin care prophylaxis, bowel, bladder issues with ostomy care and incisional observation and management. We will have the home care consultant physicians continue to follow as well. 4. Anticipated functional outcomes would be for the patient to become modified independent with transfers, mobility and ADLs, so that she can hopefully return back to her prior living situation. Goal would be independent at least at the walker level. 5. Discharge destination would be back to the [place] [address] REHAB UNIT PLAN OF CARE Name: GIOVANNA SALES Room #: 515-P [facility].#: [id number] Admission: 08/24/17 Attend Phys: Ty Cisneros MD Discharge: 08/30/17 Date of : 38 Report #: [id number] her . 6. Expected therapy by discipline includes PT and OT 1-1/2 hours per day each five days a week throughout the duration of the acute inpatient rehabilitation stay. <ELECTRONICALLY SIGNED> By: Ty Cisneros MD 09/09/17 1509 1118 1538 Ty Cisneros MD /SAPNA
[2017-08-24] MEDS ORDERED: XARELTO15 MG PO (09:54)
[2017-08-24] MEDS ORDERED: LOPRESSOR50 PO (09:54)
[2017-08-24] MEDS ORDERED: LEVALBUTER0.63 MG/3 INH (09:54)
[2017-08-24] MEDS ORDERED: ONDANSETRON HCL4 M1 IV (09:55)
[2017-08-24] MEDS ORDERED: HYDROCODON-ACE1 EAC7 PO (09:55)
[2017-08-24] MEDS ORDERED: METOCLOPRAM5 MG/1 ML IV (09:55)
[2017-08-24] MEDS ORDERED: INFANTS' G40 MG/0.6 PO (09:55)
[2017-08-24] MEDS ORDERED: PEPCID20 MG PO (09:55)
[2017-08-24] MEDS ORDERED: AUGMENTIN 875-1 EACH PO (09:56)
[2017-08-24 12:00] VITALS: BP 106/61
[2017-08-24 12:01] VITALS: BP 104/61
[2017-08-24 20:04] VITALS: BP 108/56
[2017-08-25 06:00] LABS: HEMATOCRIT 26.3 % (37.0-47.0); HEMOGLOBIN 8.9 gm/dL (12.0-15.0); MCH 31.1 pg (26.0-34.0); MCHC 33.9 g/dL (28.0-37.0); MCV 91.8 fL (80.0-100.0); RBC 2.86 mil/uL (4.20-5.00); RDW 13.1 % (10.5-14.5); WBC 15.7 thou/uL (4.0-11.0)
[2017-08-25 06:28] LABS: ALBUMIN 1.4 g/dL (3.4-5.0); CALCIUM 6.1 mg/dL (8.5-10.1); CREATININE 2.2 mg/dL (0.6-1.0); PHOSPHORUS 2.4 mg/dL (2.5-4.9); POTASSIUM 3.3 mmol/L (3.5-5.1)
[2017-08-25 09:00] VITALS: BP 114/53
[2017-08-25 19:40] VITALS: BP 105/36
[2017-08-25 21:00] VITALS: BP 120/65
[2017-08-26 06:05] LABS: CALCIUM 6.9 mg/dL (8.5-10.1); CREATININE 2.2 mg/dL (0.6-1.0); POTASSIUM 3.8 mmol/L (3.5-5.1)
[2017-08-26 08:25] VITALS: BP 108/45
[2017-08-26 19:15] VITALS: BP 107/33
[2017-08-26 20:30] VITALS: BP 118/61
[2017-08-27 07:30] VITALS: BP 141/56
[2017-08-27 07:36] LABS: ALBUMIN 1.6 g/dL (3.4-5.0); CALCIUM 7.9 mg/dL (8.5-10.1); PHOSPHORUS 3.1 mg/dL (2.5-4.9); POTASSIUM 4.5 mmol/L (3.5-5.1)
[2017-08-27 20:21] VITALS: BP 114/52
[2017-08-28 08:00] VITALS: BP 140/73
[2017-08-28 19:39] VITALS: BP 131/55
[2017-08-29 06:23] LABS: ALBUMIN 1.7 g/dL (3.4-5.0); CREATININE 2.1 mg/dL (0.6-1.0); MAGNESIUM 1.4 mg/dL (1.8-2.4); PHOSPHORUS 4.5 mg/dL (2.5-4.9); POTASSIUM 4.5 mmol/L (3.5-5.1)
[2017-08-29 08:00] VITALS: BP 148/58
[2017-08-29 15:14] VITALS: BP 148/58
[2017-08-29 20:43] VITALS: BP 119/69
[2017-08-30 08:52] VITALS: BP 148/81
[2017-08-30] MEDS ORDERED: ELIQUIS5 MG PO (09:18)
[2017-08-30] MEDS ORDERED: HYDROCODON-ACE1 EAC7 PO (10:31)
== END 2017-08-30 11:48 | disposition home health service (06) | DRG 948 ==
LOC: ENTRNSPT 08-30 11:37 → EDTRNSPTSTS 08-30 11:44
PROVIDERS: Hospitalist; Internal Medicine Nephrology; Physical Medicine & Rehabilitation
PROC: 05HB33Z Insertion of Infusion Device into Right Basilic Vein, Percutaneous Approach (ICD-10-PCS; principal; 2017-08-24)
DX: R53.81 Other malaise (principal); K50.90 Crohn's disease, unspecified, without complications; N17.9 Acute kidney failure, unspecified; J90 Pleural effusion, not elsewhere classified; N18.4 Chronic kidney disease, stage 4 (severe); K56.609 Unspecified intestinal obstruction, unspecified as to partial versus complete obstruction; I12.9 Hypertensive chronic kidney disease with stage 1 through stage 4 chronic kidney disease, or unspecified chronic kidney disease; F43.22 Adjustment disorder with anxiety; E87.6 Hypokalemia; I95.1 Orthostatic hypotension; E83.39 Other disorders of phosphorus metabolism; E83.51 Hypocalcemia; D64.9 Anemia, unspecified; I48.0 Paroxysmal atrial fibrillation; Z79.01 Long term (current) use of anticoagulants; Z90.710 Acquired absence of both cervix and uterus; Z93.2 Ileostomy status; Z90.49 Acquired absence of other specified parts of digestive tract; Z86.718 Personal history of other venous thrombosis and embolism; Z82.3 Family history of stroke; Z82.49 Family history of ischemic heart disease and other diseases of the circulatory system
CPT/HCPCS: 10112

== ENCOUNTER 2018-09-04 13:30 | Emergency (ER) | payer OTHER, MEDICARE ==
[~2018-09-04] VITALS: Ht 162.6 cm; Wt 54.0 kg
[~2018-09-04 13:30] MED LIST changes: +AUGMENTIN 875-1 EACH PO; +ELIQUIS5 MG PO; +HYDROCODON-ACE1 EAC7 PO; +INFANTS' G40 MG/0.6 PO; +LEVALBUTER0.63 MG/3 INH; +LOPRESSOR50 PO; +METOCLOPRAM5 MG/1 ML IV; +ONDANSETRON HCL4 M1 IV; +PEPCID20 MG PO; +XARELTO15 MG PO
[2018-09-04 14:09] LABS: ABSOLUTE NEUTROPHILS 5.2 thou/uL (1.4-8.2); BASOPHILS 0.3 % (0.0-2.0); EOSINOPHILS 4.1 % (0.0-3.0); HEMATOCRIT 36.7 % (37.0-47.0); HEMOGLOBIN 12.7 gm/dL (12.0-15.0); LYMPHOCYTES 13.1 % (24.0-44.0); MCH 32.7 pg (26.0-34.0); MCHC 34.6 g/dL (28.0-37.0); MCV 94.7 fL (80.0-100.0); MONOCYTES 4.6 % (1.0-8.0); PLATELET COUNT 185 thou/uL (150-400); POLYS 77.9 % (36.0-66.0); RBC 3.88 mil/uL (4.20-5.00); RDW 13.5 % (10.5-14.5); WBC 6.7 thou/uL (4.0-11.0)
[2018-09-04 14:23] LABS: ANION GAP 11 mmol/L (7-16); BUN 48 mg/dL (7-18); CALCIUM 9.2 mg/dL (8.5-10.1); CHLORIDE 93 mmol/L (98-107); CO2 24 mmol/L (21-32); CREATININE 2.5 mg/dL (0.6-1.0); GLUCOSE 142 mg/dL (74-106); POTASSIUM 3.3 mmol/L (3.5-5.1); SODIUM 128 mmol/L (136-145)
[2018-09-04 14:32] LABS: ALBUMIN 3.1 g/dL (3.4-5.0); SGOT 40 U/L (15-37); SGPT 47 U/L (30-65); TOTAL BILIRUBIN 0.4 mg/dL (<0.1-1.0); TOTAL PROTEIN 7.2 g/dL (6.4-8.2); TROPONIN-I <0.06 ng/mL (<0.06)
--- NOTE | 2018-09-04 16:20 | EKG ---
[place] [address] [facility] [place] [address] ELECTROCARDIOGRAM REPORT Name: GIOVANNA SALES [id number] Admission: 09/04/18 Attend Phys: Discharge: Date of : 38 Report #: [id number] THIS REPORT FOR: //name// [facility] ED Test Date: 2018-09-04 Test Time: 13:59:01 Pat Name: GIOVANNA SALES Department: Room: Gender: F Web Press Operator: [place] : 1940 Requested By: Joe Roach Order Number: [id number] MD: Jose Luis Walter Measurements Intervals [place] Rate: 90 P: 75 [place]: 154 QRS: 41 QRSD: 76 T: 72 QT: 373 QTc: 457 Interpretive Statements Sinus rhythm Probable left atrial enlargement Compared to ECG 08/19/2017 11:52:23 ST (T wave) deviation no longer present Electronically Signed On 09-04-2018 16:19:52 DRILL SETUP OPERATOR by Jose Luis Walter [email or web address] <ELECTRONICALLY SIGNED> By: Jose Luis Walter MD 09/04/18 1619 1359 1359 Jose Luis Walter MD /URBAN
[2018-09-04] MEDS ORDERED: TAMIFLU30 MG PO (16:35)
[2018-09-04 16:49] VITALS: BP 132/68
--- NOTE | 2018-09-05 08:15 | EKG ---
[address] [address] ELECTROCARDIOGRAM REPORT Name: GIOVANNA SALES [id number] Admission: 09/04/18 Attend Phys: Discharge: 09/04/18 Date of : 38 Report #: [id number] THIS REPORT FOR: //name// [facility] ED Test Date: 2018-09-04 Test Time: 14:20:08 Pat Name: GIOVANNA SALES Department: Room: Gender: F Manager Cardiology: WG : 1940 Requested By: Joe Roach Order Number: [id number] MD: Jose Luis Walter Measurements Intervals [place] Rate: 91 P: 76 NM: 159 QRS: 49 QRSD: 82 T: 75 QT: 379 QTc: 467 Interpretive Statements Sinus rhythm Compared to ECG 09/04/2018 13:59:01 No significant changes Electronically Signed On 09-05-2018 8:15:05 CARDIAC NURSE SPECIALIST by Jose Luis Walter [email or web address] <ELECTRONICALLY SIGNED> By: Jose Luis Walter MD 09/05/18 0815 1420 1420 Jose Luis Walter MD /URBAN
== END 2018-09-04 16:50 | disposition home or self-care (01) ==
LOC: ER 13:30
PROVIDERS: Physician Assistant
DX: R06.02 Shortness of breath (principal); K50.90 Crohn's disease, unspecified, without complications; I12.9 Hypertensive chronic kidney disease with stage 1 through stage 4 chronic kidney disease, or unspecified chronic kidney disease; N18.3 Chronic kidney disease, stage 3 (moderate); M81.0 Age-related osteoporosis without current pathological fracture; Z86.718 Personal history of other venous thrombosis and embolism; Z88.8 Allergy status to other drugs, medicaments and biological substances; Z90.710 Acquired absence of both cervix and uterus; Z95.5 Presence of coronary angioplasty implant and graft